=== PATIENT | female | born 1995 | race Caucasian/White ===

== ENCOUNTER → 2016-10-23 | Outpatient (CLI) | payer OTHER ==
[2016-10-23 19:30] LABS: ABSOLUTE EOSINOPHILS # (AUTO) 0.1 10^3/uL (0.0-0.6); ABSOLUTE LYMPHOCYTES (AUTO) 2.2 10^3/uL (0.5-4.7); ABSOLUTE MONOCYTES (AUTO) 0.7 10^3/uL (0.1-1.4); ABSOLUTE NEUT (AUTO) 7.4 10^3/uL (1.7-8.2); BASOPHILS % (AUTO) 0.2 % (0-2); EOSINOPHILS % (AUTO) 0.7 % (0-6); HEMATOCRIT 39.9 % (36.0-47.0); HEMOGLOBIN 12.7 g/dL (12.0-15.5); HGB HCT DIFFERENCE -1.8; LYMPHOCYTES % (AUTO) 20.8 % (13-45); MEAN CORPUSCULAR HEMOGLOBIN 23.1 pg (27.0-33.4); MEAN CORPUSCULAR HGB CONC 31.9 g/dL (32.0-36.0); MEAN CORPUSCULAR VOLUME 72 fl (80-97); MONOCYTES % (AUTO) 7.1 % (3-13); RED BLOOD COUNT 5.52 10^6/uL (3.72-5.28); RED CELL DISTRIBUTION WIDTH 22.2 % (11.5-14.0); SEGMENTED NEUTROPHILS % (AUTO) 71.2 % (42-78); WHITE BLOOD COUNT 10.4 10^3/uL (4.0-10.5)
== END ==
LOC: OD 17:18
PROVIDERS: ATTEND Student in an Organized Health Care Education/Training Program
DX: O02.1 Missed abortion (principal)
CPT/HCPCS: 36415; 85025; 86900; 86901

== ENCOUNTER 2016-10-24 06:56 | Day surgery (SDC) | payer OTHER ==
[2016-10-24 07:29] LABS: APPEARANCE,URINE CLEAR; BILIRUBIN,URINE NEGATIVE (NEGATIVE); GLUCOSE, URINE NEGATIVE (NEGATIVE); KETONES,URINE NEGATIVE (NEGATIVE); LEUKOCYTE ESTERASE,URINE NEGATIVE (NEGATIVE); NITRITE,URINE NEGATIVE (NEGATIVE); PROTEIN,URINE NEGATIVE (NEGATIVE); URINE SPECIFIC GRAVITY 1.015; UROBILINOGEN,URINE NEGATIVE mg/dL (<2.0)
[2016-10-24] MEDS ORDERED: DOXYCYCLINE HYCLATE 100 MG in DEXTROSE 5%-WATER 250 ML IV ONE (07:45)
[2016-10-24] MEDS ORDERED: METOCLOPRAMIDE HCL INJ/PF 10 MG/2 ML SDV ONE ×2 (08:01→11:23)
[2016-10-24] MEDS ORDERED: MIDAZOLAM 2 MG/2 ML INJ ONE ×2 (08:02→09:19)
[2016-10-24] MEDS ORDERED: FAMOTIDINE INJ/PF 20 MG/2 ML SDV IV ONE (08:02)
[2016-10-24] MEDS ORDERED: FENTANYL CITRATE INJ/PF 100 MCG/2 ML AMPUL ONE (09:18)
[2016-10-24] MEDS ORDERED: PROPOFOL INJ 200 MG/20 ML VIAL IV ONE (09:19)
--- NOTE | 2016-10-24 09:57 | Operative Report ---
Operative Report DATE OF SURGERY: 10/24/16 PREOPERATIVE DIAGNOSIS: Missed AB POSTOPERATIVE DIAGNOSIS: Same OPERATION: Suction D&C SURGEON: KASSIE TOUSSAINT ANESTHESIA: GA TISSUE REMOVED OR ALTERED: Uterine contents COMPLICATIONS: None ESTIMATED BLOOD LOSS: 50 mL INTRAOPERATIVE FINDINGS: Sound 12 cm PROCEDURE: Patient was taken to the OR and placed in the supine position. Gen. anesthesia was induced. She was placed in the dorsal lithotomy position using Francisco stirrups. Her perineum and vagina were prepared and draped in a sterile fashion. A weighted speculum was placed and the anterior lip cervix was grasped with a tenaculum. Sounded to 12 cm before and after the case. Size # 12 suction curet used to evacuate uterine contents. A gentle exploration with a sharp curette was done and no retained products noted. All instruments removed. She was extubated in the OR and taken to recovery room in stable condition.
[2016-10-24] MEDS ORDERED: GLYCOPYRROLATE INJ 0.4 MG/2 ML VIAL ONE (11:23)
[2016-10-24] MEDS ORDERED: SUCCINYLCHOLINE CHLORIDE INJ 200 MG/10 ML VIAL ONE (11:23)
[2016-10-24] MEDS ORDERED: ONDANSETRON HCL INJ/PF 4 MG/2 ML SDV ONE (11:23)
[2016-10-24 12:21] VITALS: BP 117/82
== END 2016-10-24 11:45 | disposition home or self-care (01) ==
LOC: OROUT 06:56
PROVIDERS: ATTEND Obstetrics & Gynecology
PROC: 10D17ZZ Extraction of Products of Conception, Retained, Via Natural or Artificial Opening (ICD-10-PCS; principal; 2016-10-24 09:15)
DX: O02.1 Missed abortion (principal); E66.9 Obesity, unspecified; Z79.899 Other long term (current) drug therapy; Z87.891 Personal history of nicotine dependence
CPT/HCPCS: 81001; 88305 ×2; 59820; J2250; J3490; J3010; J2765; J0330; J2405; J7060; J2704; S0028; 1965

== ENCOUNTER 2017-07-24 10:38 | Outpatient (CLI) | payer OTHER ==
--- NOTE | 2017-07-24 11:33 | Non Stress Test Report ---
Non Stress Test Datetime Report Generated by CPN: 07/24/2017 11:32 DEMOGRAPHIC EGA NST: 34.6 INDICATION Indication for Study: Other Indication for Study (NST) Other: gdm MONITORING Monitor Explained: Monitor Explained; Test Explained; Patient Verbalized Understanding Time on Monitor: 07/24/2017 10:58 Time off Monitor: 07/24/2017 11:19 NST Duration: 21 NST INTERVENTIONS NST Interventions: PO Hydration Physician Notified NST: AHMADI BABY A: [id number] BABY A Movement : Present Contraction Frequency : 0 FHR Baseline : 140 Accelerations : 15X15 Decelerations : None Variability : Moderate 6-25bpm NST Review: Meets Criteria for Reactive NST NST Review and Verified By : Grant Martinez RN NST Results: Reactive NST REPORT Report Trigger: Send Report
== END 2017-07-24 11:36 | disposition home or self-care (01) ==
LOC: LC 10:38
PROVIDERS: ATTEND Obstetrics & Gynecology Gynecology
PROC: 4A1HXCZ Monitoring of Products of Conception, Cardiac Rate, External Approach (ICD-10-PCS; principal; 2017-07-24)
DX: O24.419 Gestational diabetes mellitus in pregnancy, unspecified control (principal); Z3A.34 34 weeks gestation of pregnancy
CPT/HCPCS: 59025

== ENCOUNTER 2017-08-07 11:48 | Outpatient (CLI) | payer OTHER | END 2017-08-07 12:53 | disposition home or self-care (01) | LOC: LC 11:48 | PROVIDERS: ATTEND Obstetrics & Gynecology | PROC: 4A1HXCZ Monitoring of Products of Conception, Cardiac Rate, External Approach (ICD-10-PCS; principal; 2017-08-07) | DX: O24.419 Gestational diabetes mellitus in pregnancy, unspecified control (principal); Z3A.36 36 weeks gestation of pregnancy | CPT/HCPCS: 59025 ==

== ENCOUNTER 2017-08-14 11:40 | Emergency (ER) | payer OTHER ==
[2017-08-14 11:56] VITALS: BP 151/102
[2017-08-14] MEDS ORDERED: ACETAMINOPHEN 325 MG TABLET PO ONE (12:10)
--- NOTE | 2017-08-14 12:16 | ER Document Report ---
HPI - HPI Patient complains to provider of: Needs strep test and rapid flu test Onset: Yesterday Onset/Duration: Sudden Pain Level: 2 Context: 22-year-old gestational diabetic female that is 37 weeks was sent over for [facility] to get a rapid strep test and influenza test. She developed nasal congestion last night, felt feverish. She has been exposed to a cough virus. He was at [facility] to have a nonstress test and they did not see movement although they had a heart rate. She was sent to the hospital to be screened for the tests and then go upstairs for a nonstress test repeat. She is not having any abdominal cramping or pain or vaginal bleeding. No fever. No chest pain or shortness of breath. No nausea vomiting or diarrhea. Associated Symptoms: None Exacerbated by: Denies Relieved by: Denies - ROS ROS below otherwise negative: Yes Systems Reviewed and Negative: Yes All other systems reviewed and negative - CONSTITUTIONAL Constitutional: REPORTS: Fever, Chills - REPRODUCTIVE Reproductive: REPORTS: : Past Medical History - General Information source: Patient - Social History Smoking Status: Never Smoker Frequency of alcohol use: None Drug Abuse: None Lives with: Family Family History: Reviewed & Not Pertinent Patient has suicidal ideation: No Patient has homicidal ideation: No Pulmonary Medical History: Reports: Hx Pneumonia - 2016 Renal/ Medical History: Denies: Hx Peritoneal Dialysis Musculoskeltal Medical History: Denies Hx Arthritis Past Surgical History: Reports: Hx Tonsillectomy Vertical Provider Document - CONSTITUTIONAL Agree With Documented VS: Yes - see course note of manual bp's I did Exam Limitations: No Limitations General Appearance: No Apparent Distress - INFECTION CONTROL TRAVEL OUTSIDE OF THE [place] IN LAST 30 DAYS: No - HEENT HEENT: Normocephalic. negative: Conjuctival Injection, Pharyngeal Erythema, Tympanic Membrane Red Notes: nasal congestion - NECK Neck: Supple. negative: Lymphadenopathy-Left, Lymphadenopathy-Right - RESPIRATORY Respiratory: Breath Sounds Normal, No Respiratory Distress O2 Sat by Pulse Oximetry: 97 - CARDIOVASCULAR Cardiovascular: Regular Rate, Regular Rhythm - GI/ABDOMEN Notes: fundus - MUSCULOSKELETAL/EXTREMETIES Musculoskeletal/Extremeties: JOAO BOBBY - NEURO Level of Consciousness: Awake, Alert - DERM Integumentary: Warm, Dry Course - Re-evaluation Re-evalutation: 08/14/17 12:20 Patient states that she is gestational diabetic and her blood pressure was 132/ 84 in the office. Manual blood pressures that I am getting is 146/115 in the right arm and 152/114 in the left arm. I called Dr. Rodriguez who said to send her to labor and delivery register as a labor and delivery patient. The rapid strep and influenza test are pending. 08/14/17 18:[address] Rodriguez after the patient was up in labor and delivery and her blood pressures were 130s over 92, her influenza and rapid strep are negative. Dr. Rodriguez is having her follow-up with Dr. Haines tomorrow, and getting a 24- hour protein urine test 08/14/17 18:36 - Vital Signs Vital signs: Temp Pulse Resp BP Pulse Ox 98.2 F 119 H 16 151/102 H 97 08/14/17 11:53 08/14/17 11:53 08/14/17 11:53 08/14/17 11:53 08/14/17 11:53 Discharge - Discharge Clinical Impression: Upper respiratory infection, Elevated blood pressure reading Condition: Good Disposition: LABOR CHECK Instructions: Acetaminophen, Upper Respiratory Illness ([facility]) Additional Instructions: You are being discharged from the emergency department with a pending rapid strep and influenza test. You are being sent to labor and delivery according to Dr. Rodriguez and registered as of the labor and delivery patient for the nonstress test and the elevated blood pressure reading Referrals: SARAH RODRIGUEZ MD [ACTIVE STAFF] - Follow up as needed
[2017-08-14 12:32] LABS: A TYPE INFLUENZA AG NEGATIVE (NEGATIVE); B INFLUENZA AG NEGATIVE (NEGATIVE)
== END 2017-08-14 12:35 | disposition admitted as inpatient to this hospital (09) ==
LOC: ER 11:40
DX: O99.513 Diseases of the respiratory system complicating pregnancy, third trimester (principal); O26.893 Other specified pregnancy related conditions, third trimester; R03.0 Elevated blood-pressure reading, without diagnosis of hypertension; R09.81 Nasal congestion; R50.9 Fever, unspecified; O24.419 Gestational diabetes mellitus in pregnancy, unspecified control; Z20.828 Contact with and (suspected) exposure to other viral communicable diseases; Z3A.37 37 weeks gestation of pregnancy; Z87.01 Personal history of pneumonia (recurrent)
CPT/HCPCS: 87070; 87804; 87880; 99283

== ENCOUNTER 2017-08-14 12:26 | Outpatient (CLI) | payer OTHER ==
--- NOTE | 2017-08-14 12:38 | Non Stress Test Report ---
Non Stress Test Datetime Report Generated by CPN: 08/14/2017 12:37 DEMOGRAPHIC EGA NST: 36.6 INDICATION Indication for Study: Diabetes Mellitus; Ordered by Provider VITAL SIGNS Temperature - NST: 98.8 Pulse - NST: 85 RESP - NST: 18 NBPSYS NST: 129 NBPDIA NST: 81 MONITORING Monitor Explained: Monitor Explained; Test Explained; Patient Verbalized Understanding Time on Monitor: 08/07/2017 12:00 Time off Monitor: 08/07/2017 12:48 NST Duration: 48 NST INTERVENTIONS NST Interventions: PO Hydration; Reposition Patient Physician Notified NST: K BOLES, CNM BABY A: [id number] BABY A Movement : Present Contraction Frequency : occ Accelerations : 15X15 Decelerations : None Variability : Moderate 6-25bpm NST Review: Meets Criteria for Reactive NST NST Review and Verified By : Grant Diallo RN NST Results: Reactive NST REPORT Report Trigger: Send Report
[2017-08-14 13:16] LABS: APPEARANCE,URINE CLOUDY; BILIRUBIN,URINE NEGATIVE (NEGATIVE); COLOR,URINE YELLOW; GLUCOSE, URINE NEGATIVE (NEGATIVE); KETONES,URINE NEGATIVE (NEGATIVE); LEUKOCYTE ESTERASE,URINE NEGATIVE (NEGATIVE); NITRITE,URINE NEGATIVE (NEGATIVE); PROTEIN,URINE 100 mg/dL (NEGATIVE); URINE SPECIFIC GRAVITY 1.008; UROBILINOGEN,URINE NEGATIVE mg/dL (<2.0)
--- NOTE | 2017-08-14 13:20 | Non Stress Test Report ---
Non Stress Test Datetime Report Generated by CPN: 08/14/2017 13:20 DEMOGRAPHIC EGA NST: 37.6 INDICATION Indication for Study: Other Indication for Study (NST) Other: labor check MONITORING Monitor Explained: Monitor Explained; Test Explained; Patient Verbalized Understanding Time on Monitor: 08/14/2017 12:45 Time off Monitor: 08/14/2017 13:18 NST Duration: 33 NST INTERVENTIONS NST Interventions: PO Hydration Physician Notified NST: Dr.Gordon BABY A Movement : Present Accelerations : 15X15 Decelerations : None Variability : Moderate 6-25bpm NST Review: Meets Criteria for Reactive NST NST Review and Verified By : Maame Camp RNC NST Results: Reactive NST REPORT Report Trigger: Send Report
[2017-08-14 13:31] LABS: ABSOLUTE MONOCYTES (AUTO) 0.8 10^3/uL (0.1-1.4); ABSOLUTE NEUT (AUTO) 12.2 10^3/uL (1.7-8.2); EOSINOPHILS % (AUTO) 0.1 % (0-6); HEMATOCRIT 37.1 % (36.0-47.0); HEMOGLOBIN 12.6 g/dL (12.0-15.5); LYMPHOCYTES % (AUTO) 6.9 % (13-45); MEAN CORPUSCULAR HEMOGLOBIN 28.3 pg (27.0-33.4); MEAN CORPUSCULAR HGB CONC 33.9 g/dL (32.0-36.0); MEAN CORPUSCULAR VOLUME 83 fl (80-97); MONOCYTES % (AUTO) 5.7 % (3-13); PLATELET COUNT 179 10^3/uL (150-450); RED BLOOD COUNT 4.45 10^6/uL (3.72-5.28); RED CELL DISTRIBUTION WIDTH 14.1 % (11.5-14.0); SEGMENTED NEUTROPHILS % (AUTO) 87.3 % (42-78); TOTAL CELLS COUNTED % (AUTO) 100 %
[2017-08-14 13:45] LABS: ALANINE AMINOTRANSFERASE 25 U/L (9-52); ALBUMIN 2.9 g/dL (3.5-5.0); ALKALINE PHOSPHATASE 164 U/L (38-126); ANION GAP 11 (5-19); ASPARTATE AMINO TRANSFERASE 16 U/L (14-36); BILIRUBIN,DIRECT 0.2 mg/dL (0.0-0.4); BILIRUBIN,TOTAL 0.5 mg/dL (0.2-1.3); BLOOD UREA NITROGEN 8 mg/dL (7-20); CARBON DIOXIDE 17 mmol/L (22-30); CHLORIDE 106 mmol/L (98-107); GLUCOSE 93 mg/dL (75-110); LDH 441 U/L (313-618); SODIUM 133.9 mmol/L (137-145); TOTAL PROTEIN 5.3 g/dL (6.3-8.2); URIC ACID 6.7 mg/dL (2.5-6.2)
[2017-08-14 13:48] LABS: URINE AMPHETAMINES SCREEN NEGATIVE; URINE BARBITURATES SCREEN NEGATIVE; URINE BENZODIAZEPINES SCREEN NEGATIVE; URINE COCAINE SCREEN NEGATIVE; URINE MARIJUANA (THC) SCREEN NEGATIVE; URINE METHADONE SCREEN NEGATIVE; URINE PHENCYCLIDINE SCREEN NEGATIVE
[2017-08-14 14:03] LABS: UR PRO/CREAT RATIO RESULT 1.6 mg/mg (0.0-0.2); URINE CREATININE 85.3 mg/dL (16-327); URINE PROTEIN 132.4 mg/dL (<12)
== END 2017-08-14 14:27 | disposition home or self-care (01) ==
LOC: LC 12:26
PROVIDERS: ATTEND Student in an Organized Health Care Education/Training Program
PROC: 4A1HXCZ Monitoring of Products of Conception, Cardiac Rate, External Approach (ICD-10-PCS; principal; 2017-08-14)
DX: O16.3 Unspecified maternal hypertension, third trimester (principal); O24.419 Gestational diabetes mellitus in pregnancy, unspecified control; Z3A.37 37 weeks gestation of pregnancy
CPT/HCPCS: 36415; 59025; 80053; 80307; 81001; 82570; 83615; 84156; 84550; 85025

== ENCOUNTER 2017-08-15 15:02 | Outpatient (CLI) | payer OTHER ==
[2017-08-15 15:46] LABS: 24 HOUR URINE PROTEIN RESULT 1537 mg/day (42-225); URINE PROTEIN 109.8 mg/dL (<12)
== END 2017-08-15 16:20 | disposition home or self-care (01) ==
LOC: LC 15:02
PROVIDERS: ATTEND Student in an Organized Health Care Education/Training Program
PROC: 4A1HXCZ Monitoring of Products of Conception, Cardiac Rate, External Approach (ICD-10-PCS; principal; 2017-08-15)
DX: O16.3 Unspecified maternal hypertension, third trimester (principal); O24.419 Gestational diabetes mellitus in pregnancy, unspecified control; Z3A.38 38 weeks gestation of pregnancy
CPT/HCPCS: 59025; 84156